=== PATIENT | male | born 1955 ===

== ENCOUNTER 2020-11-19 09:07 | Emergency (ER) | payer MEDICAID ==
[~2020-11-19] VITALS: Ht 165.1 cm; Wt 54.1 kg
[~2020-11-19 09:07] MED LIST: etomidate 2mg/ml inj. ONE; rocuronium 10mg/ml inj IV ONE; sod chloride 0.9% 10ml flush syringe IV ONE
[2020-11-19] MEDS ORDERED: NORMAL SALINE IV ONE (09:15)
[2020-11-19] MEDS ORDERED: KETAMINE IV ONE (09:15)
[2020-11-19] MEDS ORDERED: MIDAZolam 5mg/ml 2ml vial IV ONE (09:45)
[2020-11-19] MEDS ORDERED: midazolam 100mg in NS 100ml 100 ML IV PRN (09:50)
[2020-11-19] MEDS: FENTANYL-0.9 % NACL/PF 100 ML IV PRN ×2 (09:53→11:03)
[2020-11-19] MEDS ORDERED: normal saline 1000ML IV soln IVB ONE (10:05)
[2020-11-19] MEDS ORDERED: TETanus/Pertussis (Acell)/Diphther VAC/PF (Tdap-Adult) 0.5ml syringe IMVAC ONE (10:15)
[2020-11-19] MEDS ORDERED: bacitracin 15gm ointment TP ONE (10:15)
[2020-11-19] MEDS ORDERED: ringers solution, lactated 1000ml IV soln IV ONE (10:15)
[2020-11-19] MEDS ORDERED: ringers solution, lacted 1,000 ML IV SCH (10:20)
[2020-11-19 10:21] LABS: CLARITY,URINE CLEAR (Clear); COLOR,URINE YELLOW (Yellow); GLUCOSE, URINE 500 mg/dl (Neg); KETONES,URINE NEGATIVE (Neg); LEUKOCYTE ESTERASE ,URINE NEGATIVE (Neg); NITRITES, URINE NEGATIVE (Neg); OCCULT BLOOD,URINE MODERATE (Neg); PROTEIN,URINE >=300 mg/dl (Neg); UA COLLECTION TYPE FOLEY CATH; UROBILINOGEN,URINE 0.2 E.U/dL (0.2-1.0)
[2020-11-19 10:25] LABS: ABG BASE EXCESS 0.6 mmol/L (-2.0-2.0); ABG HCO3 23.7 mmol/L (22.0-26.0); ABG OXYGEN SATURATION 98.2 % (94-97); ABG PCO2 (T) 32.6 mmHg (35.0-48.0); ABG PO2 (T) 467.5 mmHg (75.0-100.0); ALLEN'S TEST POSITIVE; FCOHb 0.3 % (0.0-3.9); FMetHb 0.3 % (0.0-1.5); FO2Hb 97.6 % (94-97); PEEP 5 cm H2O; RESPIRATORY RATE 14 b/min; TIDAL VOLUME 450 mL
[2020-11-19 10:29] LABS: WBC,URINE 0-4 /HPF (0-4)
[2020-11-19 10:30] LABS: BACTERIA,URINE FEW /HPF (Neg); SQUAMOUS EPITHELIAL CELL,UR NONE SEEN /LPF (FEW)
[2020-11-19 10:33] LABS: BASOPHILS # (AUTO) 0.1 X10'3 (0-0.2); BASOPHILS % (AUTO) 0.6 % (0-1); EOSINOPHILS # (AUTO) 1.3 X10'3 (0-0.9); EOSINOPHILS % (AUTO) 10.6 % (0-6); HEMATOCRIT 37.7 % (42.0-52.0); HEMOGLOBIN 12.7 g/dl (14.0-17.9); LYMPHOCYTES # (AUTO) 4.4 X10'3 (1.1-4.8); LYMPHOCYTES % (AUTO) 36.6 % (21-51); MEAN CORPUSCULAR HEMOGLOBIN 29.4 PG (27.0-31.0); MEAN CORPUSCULAR HGB CONC 33.7 g/dL (33.0-36.5); MEAN CORPUSCULAR VOLUME 87.3 FL (78-98); MEAN PLATELET VOLUME 7.3 FL (7.4-10.4); MONOCYTES # (AUTO) 1.1 X10'3 (0-0.9); MONOCYTES % (AUTO) 9.6 % (2-12); NEUTROPHILS # (AUTO) 5.1 X10'3 (1.8-7.7); NEUTROPHILS % (AUTO) 42.6 % (42-75); PLATELET COUNT 531 X10'3 (140-440); RED BLOOD COUNT 4.31 X10'6 (4.70-6.10); RED CELL DISTRIBUTION WIDTH 14.6 % (11.5-14.5); WHITE BLOOD COUNT 11.9 X10'3 (4.5-11.0)
--- NOTE | 2020-11-19 10:34 | NUR ---
REPORT TO [facility] TO AISHA BAEZ
--- NOTE | 2020-11-19 10:58 | NUR ---
UPDATED [facility] WITH PATIENT'S BROTHER'S INFORMATION: PAM [phone]
[2020-11-19 11:08] LABS: ALANINE AMINOTRANSFERASE 38 U/L (12-78); ALBUMIN 1.3 G/DL (3.4-5.0); ALBUMIN/GLOBULIN RATIO 0.3 (1.1-1.5); ALKALINE PHOSPHATASE 122 IU/L (46-116); ANION GAP 13 (8-16); ASPARTATE AMINO TRANSFERASE 38 U/L (10-37); BILIRUBIN,TOTAL 0.2 MG/DL (0.1-1.0); BLOOD UREA NITROGEN 27 MG/DL (7-18); BUN/CREATININE RATIO 9.6 (5.4-32.0); CALCIUM 8.1 MG/DL (8.5-10.1); CHLORIDE 103 MMOL/L (99-107); CREATININE 2.82 MG/DL (0.60-1.10); GLUCOSE 195 MG/DL (70-104); POTASSIUM 3.1 MMOL/L (3.5-5.1); SODIUM 138 MMOL/L (135-145); TOTAL CARBON DIOXIDE 21.6 MMOL/L (24-32); TOTAL PROTEIN 6.2 G/DL (6.4-8.2); eGFR 23 ML/MIN
--- NOTE | 2020-11-19 11:10 | NUR ---
BEDSIDE REPORT TO REACH RN [facility]. PATIENT TO GO TO [facility]. ON VENT FIO2 LOWERED BY RTX TO 60% 8.0 OETT 24 CM LIP, TV 450, PEEP 5, RATE 14 CURRENT SETTINGS, OG TO LIS, QUAD LUMEN TO RIGHT GROIN WITH LR AT 200 ML/HR (PER [facility] [place]), FENTANYL @ 200 MCG/HR AND VERSED @ 4 MG/HR, RIGHT WRIST 18 GAUGE SL, EDWARDS CATHETER TO GRAVITY WITH 100ML CLEAR YELLOW URINE
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
[2020-11-19 11:16] VITALS: BP 186/98
[2020-11-19 11:19] LABS: CKMB RELATIVE INDEX 2.1 RATIO (0-2.5); CREATINE KINASE 589 U/L (39-308)
--- NOTE | 2020-11-19 11:26 | NUR ---
REACH LEAVING ER WITH PATIENT
== END 2020-11-19 11:32 | disposition short-term general hospital (02) ==
LOC: ER 09:08
DX: T20.27XA Burn of second degree of neck, initial encounter (principal); T20.20XA Burn of second degree of head, face, and neck, unspecified site, initial encounter; T21.21XA Burn of second degree of chest wall, initial encounter; T22.241A Burn of second degree of right axilla, initial encounter; T31.44 Burns involving 40-49% of body surface with 40-49% third degree burns; I10 Essential (primary) hypertension; R06.03 Acute respiratory distress; E11.9 Type 2 diabetes mellitus without complications; Z79.899 Other long term (current) drug therapy
CPT/HCPCS: 16020; 31500; 36415; 36556; 36600; 71045; 80053; 81001; 82550; 82553; 82803; 85018; 85025; 87070; 90471; 90715; 96365; 96366; 99291; 99292; J2250; 43762; 94002; 94760; J3010; J7120